=== PATIENT | male | born 1975 | race Caucasian/White ===

== ENCOUNTER → 2021-06-26 | Outpatient (CLI) | payer BC ==
[~2021-06-26] MED LIST: ALDACTONE 25MG25 MG PO; AMLODIPINE BESYL5 MG PO; BUSPIRONE HCL7.5 MG PO; COZAAR100 MG PO; PROPRANOLOL HCL60 MG PO; PROTONIX40 MG PO
== END ==
LOC: WCC 10:07
DX: T81.31XA Disruption of external operation (surgical) wound, not elsewhere classified, initial encounter (principal); I10 Essential (primary) hypertension; Z95.4 Presence of other heart-valve replacement
CPT/HCPCS: G0463

== ENCOUNTER → 2021-06-27 | Day surgery (SDC) | payer BC ==
[~2021-06-27] VITALS: Ht 180.3 cm; Wt 77.1 kg
== END | disposition home or self-care (01) ==
LOC: OR 08:15
DX: K29.50 Unspecified chronic gastritis without bleeding (principal); K20.90 Esophagitis, unspecified without bleeding; I10 Essential (primary) hypertension; Z87.11 Personal history of peptic ulcer disease; Z20.822 Contact with and (suspected) exposure to COVID-19; Z95.2 Presence of prosthetic heart valve
CPT/HCPCS: J2704